=== PATIENT | male | born 1990 | race Caucasian/White ===

== ENCOUNTER 2018-03-24 14:36 | Emergency (ER) | payer OTHER ==
[2018-03-24] MEDS ORDERED: Sodium Chloride 0.9% 1,000 ML IV ONE (14:58)
--- NOTE | 2018-03-24 15:04 | C.PDOC ---
History Of Present Illness 27 y/o male, with PMHx of kidney stones (last episode 2 years ago), presents to ED c/o intermittent right flank pain for the past 2 weeks but worse today. Pt also reports vague right lower abdominal pain, right testicular pain, and nausea. Notes being evaluated at [facility], had urine tested which showed blood in the urine and was referred to the ER for further evaluation. Denies vomiting, fever, or difficulty urinating. Time Seen by Provider: 03/24/18 14:50 Chief Complaint (Nursing): Groin Pain History Per: Patient History/Exam Limitations: no limitations Onset/Duration Of Symptoms: Days Current Symptoms Are (Timing): Still Present Quality Of Discomfort: "Pain" Associated Symptoms: Nausea Past Medical History Reviewed: Historical Data, Nursing Documentation, Vital Signs Vital Signs: Last Vital Signs Temp 98.3 F 03/24/18 14:46 Pulse 79 03/24/18 14:46 Resp 20 03/24/18 14:46 BP 113/69 03/24/18 14:46 Pulse Ox 100 03/24/18 15:08 - Medical History PMH: Kidney Stones Family History: States: Unknown Family Hx - Social History Hx Alcohol Use: No Hx Substance Use: No Review Of Systems Except As Marked, All Systems Reviewed And Found Negative. Constitutional: Negative for: Fever, Chills Gastrointestinal: Positive for: Nausea, Abdominal Pain. Negative for: Vomiting , Diarrhea Genitourinary: Positive for: Scrotal Pain (right) Musculoskeletal: Positive for: Back Pain (right flank) Physical Exam - Physical Exam Appears: Non-toxic, No Acute Distress Skin: Normal Color, Warm, Dry Head: Atraumatic, Normacephalic Eye(s): bilateral: Normal Inspection Oral Mucosa: Moist Neck: Supple Cardiovascular: Rhythm Regular, No Murmur Respiratory: Normal Breath Sounds, No Rales, No Rhonchi, No Wheezing Gastrointestinal/Abdominal: Soft, Tenderness (mild right side abdomen ), No Guarding, No Rebound Back: CVA Tenderness (mild right) Male Genital: Normal Inspection, No Testicular Tenderness, No Testicular Swelling Extremity: Normal ROM Neurological/Psych: Oriented x3, Normal Speech ED Course And Treatment - Laboratory Results Result Diagrams: 03/24/18 15:27 03/24/18 15:27 Lab Interpretation: No Acute Changes O2 Sat by Pulse Oximetry: 100 (RA) Pulse Ox Interpretation: Normal - CT Scan/US CT abomen ad pelvis without contrast Other Rad Studies (CT/US): Read By Radiologist, Radiology Report Reviewed CT/US Interpretation: Accession No. : [id number]. Patient Name / ID : COLBY CALI / [id number]. Exam Date : 03/24/2018 15:34:46 ( Approved ). Study Comment : Sex / Age : M / 27Y. Creator : Rigo Landeros MD. Dictator : Rigo Landeros MD. Instructor Psychiatric Aide : Infant Childcare Provider : Rigo Landeros MD. Approver2 : Report Date : 03/24/2018 16:03:14. My Comment : . Date of service: 03/24/2018. PROCEDURE: CT Abdomen and Pelvis without intravenous contrast. HISTORY: abd pain. COMPARISON: None. TECHNIQUE: Helical CT of the abdomen and pelvis was performed without oral or intravenous contrast as per referring physician request. Contrast dose: None. Radiation dose: Total exam DLP = 352.69 mGy-cm. This CT exam was performed using one or more of the following dose reduction techniques: Automated exposure control, adjustment of the mA and/or kV according to patient size, and/or use of iterative reconstruction technique. FINDINGS: LOWER THORAX: Unremarkable. LIVER: Unremarkable. No gross lesion or ductal dilatation. GALLBLADDER AND BILE DUCTS: Unremarkable. PANCREAS: Unremarkable. No gross lesion or ductal dilatation. SPLEEN: Unremarkable. ADRENALS: Unremarkable. No mass. KIDNEYS AND URETERS: There is no hydronephrosis bilaterally although several intrarenal calculi are seen at the bilateral kidneys. None are seen in the urinary bladder. There is questionable dilatation of the mid right ureter alone. 4.4 mm calculus is seen at the medial right hemipelvis potentially in the plane of the right ureter however there is no hydroureteronephrosis making this unlikely urolith and more likely a phlebolith or other adjacent calcifications is a granuloma. Consider follow-up contrast abdomen pelvis CT for better characterization. Intrarenal calculi at the right appear punctate in size with the largest measuring 3 mm. Two intrarenal calculi identified left kidney the largest measuring 6.0 mm at the midpole anteriorly. VASCULATURE: Unremarkable. No aortic aneurysm. BOWEL: No bowel obstruction identified. . APPENDIX: Not clearly identified. No definite appendicitis pattern evident grossly. Clinically correlate nevertheless. PERITONEUM: Unremarkable. No free fluid. No free air. LYMPH NODES: Unremarkable. No enlarged lymph nodes. BLADDER: Unremarkable. REPRODUCTIVE: Unremarkable. BONES: No acute fracture. OTHER FINDINGS: None. IMPRESSION: 1. Probable limited right hydroureter on the basis of a 4.4 mm calculus obstructing the distal right ureter at the right hemipelvis. The pattern is unusual because there is no definite hydronephrosis appreciated. Follow-up contrast and pelvis CT can be performed if clinically warranted. No definite left-sided obstructive uropathy. 2. Bilateral nonobstructing intrarenal calculi, right greater than left kidney. Reevaluation Time: 16:09 Reassessment Condition: Improved Medical Decision Making Medical Decision Making: Plan: Blood work Urinalysis Abd & Pelvis CT Toradol, IV fluids Reassess Disposition Counseled Patient/Family Regarding: Studies Performed, Diagnosis, Need For Followup, Rx Given - Disposition Referrals: Khanh Villalta MD [Staff Provider] - Disposition: HOME/ ROUTINE Disposition Time: 16:15 Condition: IMPROVED Prescriptions: Ketorolac Tromethamine [Toradol] 10 mg PO QID PRN #20 tab PRN Reason: Pain, Severe (8-10) Tamsulosin [Flomax] 0.4 mg PO DAILY #30 cap traMADol [Ultram] 50 mg PO QID PRN #10 tab PRN Reason: Pain, Severe (8-10) Instructions: Kidney Stones (DC) Forms: Haha Pinche ([place] Islander) - Clinical Impression Clinical Impression: Renal colic on right side - Scribe Statement The provider has reviewed the documentation as recorded by the Scribe KP All medical record entries made by the Scribe were at my direction and personally dictated by me. I have reviewed the chart and agree that the record accurately reflects my personal performance of the history, physical exam, medical decision making, and the department course for this patient. I have also personally directed, reviewed, and agree with the discharge instructions and disposition.
[2018-03-24 15:10] VITALS: TEMP 98.3; O2SAT 100; BMI 19.5
[2018-03-24] MEDS ORDERED: Sodium Chloride 0.9% 1,000 ML ONE (15:17)
[2018-03-24 15:51] LABS: BASO % 0.3 % (0.0-2.0); EOS # 0.1 K/uL (0.0-0.7); EOS % 2.2 % (0.0-4.0); HEMOGLOBIN 14.8 g/dL (12.0-18.0); LYMPH # 2.2 K/uL (1.0-4.3); LYMPH % 39.1 % (20.0-40.0); MEAN CELL VOLUME 81.2 fL (80.0-94.0); MEAN CORPUSCULAR HGB CONC 33.2 g/dL (33.0-37.0); MEAN PLATELET VOLUME 8.6 fL (7.2-11.7); MONO # 0.4 K/uL (0.0-0.8); MONO % 7.1 % (0.0-10.0); NEUT # 2.9 K/uL (1.8-7.0); NEUT % 51.3 % (50.0-75.0); NRBC % 0.2 % (0.0-2.0); RBC 5.5 Mil/uL (4.40-5.90); RED CELL DISTRIBUTION WIDTH 13.3 % (11.5-14.5); WHITE BLOOD COUNT 5.7 K/uL (4.8-10.8)
[2018-03-24 15:59] LABS: ALB/GLOB RATIO 1.4 (1.0-2.1); ALBUMIN 4.4 g/dL (3.5-5.0); ALT/SGPT 22 U/L (21-72); AST/SGOT 18 U/L (17-59); BLOOD UREA NITROGEN 13 mg/dL (9-20); CALCIUM 9.6 mg/dl (8.6-10.4); GFR AFRICAN-AMERICAN > 60; GFR NON-AFRICAN AMERICAN > 60
--- NOTE | 2018-03-24 16:04 | CT ---
Date of service: 03/24/2018 PROCEDURE: CT Abdomen and Pelvis without intravenous contrast HISTORY: abd pain COMPARISON: None. TECHNIQUE: Helical CT of the abdomen and pelvis was performed without oral or intravenous contrast as per referring physician request. Contrast dose: None Radiation dose: Total exam DLP = 352.69 mGy-cm. This CT exam was performed using one or more of the following dose reduction techniques: Automated exposure control, adjustment of the mA and/or kV according to patient size, and/or use of iterative reconstruction technique. FINDINGS: LOWER THORAX: Unremarkable. LIVER: Unremarkable. No gross lesion or ductal dilatation. GALLBLADDER AND BILE DUCTS: Unremarkable. PANCREAS: Unremarkable. No gross lesion or ductal dilatation. SPLEEN: Unremarkable. ADRENALS: Unremarkable. No mass. KIDNEYS AND URETERS: There is no hydronephrosis bilaterally although several intrarenal calculi are seen at the bilateral kidneys. None are seen in the urinary bladder. There is questionable dilatation of the mid right ureter alone. 4.4 mm calculus is seen at the medial right hemipelvis potentially in the plane of the right ureter however there is no hydroureteronephrosis making this unlikely urolith and more likely a phlebolith or other adjacent calcifications is a granuloma. Consider follow-up contrast abdomen pelvis CT for better characterization. Intrarenal calculi at the right appear punctate in size with the largest measuring 3 mm. Two intrarenal calculi identified left kidney the largest measuring 6.0 mm at the midpole anteriorly. VASCULATURE: Unremarkable. No aortic aneurysm. BOWEL: No bowel obstruction identified. . APPENDIX: Not clearly identified. No definite appendicitis pattern evident grossly. Clinically correlate nevertheless. PERITONEUM: Unremarkable. No free fluid. No free air. LYMPH NODES: Unremarkable. No enlarged lymph nodes. BLADDER: Unremarkable. REPRODUCTIVE: Unremarkable. BONES: No acute fracture. OTHER FINDINGS: None. IMPRESSION: 1. Probable limited right hydroureter on the basis of a 4.4 mm calculus obstructing the distal right ureter at the right hemipelvis. The pattern is unusual because there is no definite hydronephrosis appreciated. Follow-up contrast and pelvis CT can be performed if clinically warranted. No definite left-sided obstructive uropathy. 2. Bilateral nonobstructing intrarenal calculi, right greater than left kidney.
[2018-03-24 16:33] VITALS: BP 105/64; PULSE 75; RESP 18
== END 2018-03-24 16:33 | disposition home or self-care (01) ==
LOC: C.ER 14:36
DX: N23 Unspecified renal colic (principal)
CPT/HCPCS: 74176; 80053; 85025; 96361; 96374; 99282; J1885; J7030